=== PATIENT | male | born 1990 | race Caucasian/White ===

== ENCOUNTER 2018-12-10 10:51 | Outpatient (CLI) | END 2018-12-10 10:52 | disposition home or self-care (01) | LOC: RHC-LAB 10:51 | PROVIDERS: ATTEND Nurse Practitioner Family | DX: R82.2 Biliuria (principal); Z20.2 Contact with and (suspected) exposure to infections with a predominantly sexual mode of transmission | CPT/HCPCS: 81001; 87800 ==